=== PATIENT | male | born 1965 | race Hispanic/Latino ===

== ENCOUNTER 2016-09-18 14:19 | Emergency (ER) | payer OTHER ==
[2016-09-18 17:57] LABS: Bilirubin,Urine NEG (Negative); Blood,Urine SM (Negative); Ketones,Urine TR mg/dL (Negative); Leukocyte Esterase,Urine NEG (Negative); Mucus,Urine FEW /HPF; Nitrite,Urine NEG (Negative); Protein,Urine <15 mg/dL mg/dL (Negative); Urobilinogen,Urine < 2.0 mg/dL (<2.0); WBC,Urine < 1.0 /HPF (0.0-6.0)
[2016-09-18] MEDS ORDERED: NACL ONE (18:25)
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
[2016-09-18 19:33] LABS: Eosinophils % (Auto) 0.6 % (0.0-4.3); Hematocrit 46.5 % (35.5-45.6); Hemoglobin 15.6 gm/dl (11.8-15.2); Mean Corpuscular HGB Conc 34 % (32-34); Mean Corpuscular Hemoglobin 34 pg (28-32); Mean Corpuscular Volume 100 fl (84-94); Platelet Count 232 K/mm3 (140-440); Red Blood Count 4.67 M/mm3 (3.65-5.03); Red Cell Distribution Width 14.4 % (13.2-15.2); White Blood Count 5.6 K/mm3 (4.5-11.0)
[2016-09-18 19:45] LABS: INR 1.07 (0.87-1.13)
[2016-09-18 19:46] LABS: Partial Thromboplastin Time 27.5 Sec. (24.2-36.6)
[2016-09-18 19:53] LABS: Alanine Aminotransferase 35 units/L (7-56); Albumin 4.6 g/dL (3.9-5); Albumin/Globulin Ratio 1.6 %; Alkaline Phosphatase 69 units/L (35-129); Anion Gap 17 mmol/L; Bilirubin,Total 0.6 mg/dL (0.1-1.2); Blood Urea Nitrogen 11 mg/dL (9-20); Calcium 9.2 mg/dL (8.4-10.2); Carbon Dioxide 27 mmol/L (22-30); Chloride 98.9 mmol/L (98-107); Glucose 85 mg/dL (75-100); Sodium 138 mmol/L (137-145); Total Protein 7.5 g/dL (6.3-8.2)
[2016-09-18] MEDS ORDERED: MORPHINE ONE (20:01)
[2016-09-18] MEDS ORDERED: ZOFRAN ONE (20:01)
[2016-09-18] MEDS ORDERED: ZOFRAN IV ONE (20:02)
[2016-09-18] MEDS ORDERED: MORPHINE IV ONE (20:02)
[2016-09-18 20:06] VITALS: BP 123/75
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
[2016-09-18] MEDS ORDERED: DILAUDID IV ONE (21:26)
== END 2016-09-18 21:50 | disposition home or self-care (01) ==
LOC: ED 14:19
DX: S39.012A Strain of muscle, fascia and tendon of lower back, initial encounter (principal); F17.200 Nicotine dependence, unspecified, uncomplicated; V23.4XXA Motorcycle driver injured in collision with car, pick-up truck or van in traffic accident, initial encounter; Y93.9 Activity, unspecified; Y99.9 Unspecified external cause status; Y92.410 Unspecified street and highway as the place of occurrence of the external cause
CPT/HCPCS: 36415; 70450; 71020; 72100; 72125; 74177; 80053; 81001; 85025; 85610; 85730; 96374; 96375; 99285; J1170; J2270; J2405; Q9967